=== PATIENT | female | born 1985 ===

== ENCOUNTER 2023-01-22 17:11 | Emergency (ER) | payer SELFPAY ==
[2023-01-22 17:17] VITALS: BP 134/83; PULSE 74; RESP 20; TEMP 37.1; O2SAT 96
--- NOTE | 2023-01-22 17:27 | ED.GENADULT ---
HPI - General Adult General Chief complaint: Allergic Reaction Stated complaint: allergic reaction Time Seen by Provider: 01/22/23 17:13 History of Present Illness HPI narrative: Sirisha presented to the ED after a wasp sting. She was afraid because she is allergic to bees. When she gets stung there is a lot of itching, pain and swelling. There is no lip or tongue swelling and no breathing difficulties. Other than a little pain she has no issues. Related Data Allergies Allergy/AdvReac Type Severity Reaction Status Date / Time codeine Allergy Intermediate Unknown Verified 01/22/23 17:27 tramadol Allergy Intermediate Unknown Verified 01/22/23 17:27 sulfamethoxazole Allergy Unknown Verified 01/22/23 17:27 [From Bactrim] trimethoprim [From Bactrim] Allergy Unknown Verified 01/22/23 17:27 Review of Systems Review of Systems: All systems reviewed & are unremarkable except as noted in HPI and below PMFSH Social History Social History Smoking status: Current every day smoker Exam Const: General: healthy appearing and no acute distress Nutritional Appearance: well nourished Orientation/consciousness: patient oriented x3 HENMT: Head: normal to inspection Ears: external ears normal Face/Nose/Sinus: Normal external nose present Face and sinus: normal facial exam Eyes: Conjunctivae: conjunctivae normal Pupils: Equal, round and reactive pupils present Neck: Neck: normal visual inspection Chest: Chest palpation & inspection: normal inspection of the chest Resp: Effort & Inspection: normal respiratory effort Auscultation: clear to auscultation bilaterally Cardio: Rate: regular rate Back/Spine/Pelvis: Back: no CVA tenderness Skin: General skin exam: normal color Other: small 2mm x 2mm erythematous papule on the pack of the right knee Neuro: General: patient oriented x3 and moves all extremities Cranial nerves: Yes Nystagmus not present Extrem: General: normal to inspection Psych: Mental Status: mental status grossly normal Affect: normal affect Course Course Emergency Course: Offered benadryl and pepsid when patient stated that she does not like pills. I discussed that she does not meet any criteria for epi. She then said she did not want any care and left the ED. As there were no systemic symptoms treatment would symptomatic. Vital Signs Vital signs: Vital Signs Temperature 98.7 F 01/22/23 17:17 Pulse Rate 74 01/22/23 17:17 Respiratory Rate 01/22/23 17:17 Blood Pressure 134/83 01/22/23 17:17 Pulse Oximetry 96 01/22/23 17:17 Oxygen Delivery Room Air 01/22/23 17:17 Temperature 98.7 F 01/22/23 17:17 Pulse Rate 74 01/22/23 17:17 Respiratory Rate 01/22/23 17:17 Blood Pressure 134/83 01/22/23 17:17 Pulse Oximetry 96 01/22/23 17:17 Oxygen Delivery Room Air 01/22/23 17:17 Medical Decision Making Vital Signs Vital Signs: Vital Signs Temperature 98.7 F 01/22/23 17:17 Pulse Rate 74 01/22/23 17:17 Respiratory Rate 01/22/23 17:17 Blood Pressure 134/83 01/22/23 17:17 Pulse Oximetry 96 01/22/23 17:17 Oxygen Delivery Room Air 01/22/23 17:17 Temperature 98.7 F 01/22/23 17:17 Pulse Rate 74 01/22/23 17:17 Respiratory Rate 01/22/23 17:17 Blood Pressure 134/83 01/22/23 17:17 Pulse Oximetry 96 01/22/23 17:17 Oxygen Delivery Room Air 01/22/23 17:17 Discharge Plan Discharge Clinical Impression: Insect bite Patient Disposition: Home, Self-Care Condition: Stable Instructions: Insect Bite or Sting (ED) Follow-up/Referrals: UNKNOWN,DOCTOR [Primary Care Provider] -
== END 2023-01-22 17:30 | disposition home or self-care (01) ==
LOC: CHSED 17:42
PROVIDERS: Emergency Provider Family Medicine
DX: T63.461A Toxic effect of venom of wasps, accidental (unintentional), initial encounter (principal); F17.200 Nicotine dependence, unspecified, uncomplicated
CPT/HCPCS: 99281

== ENCOUNTER 2024-10-08 19:22 | Emergency (ER) | payer OTHER, SELFPAY ==
[2024-10-08 19:22] VITALS: BP 119/82; PULSE 76; RESP 20; TEMP 36.4; O2SAT 95
--- NOTE | 2024-10-08 19:25 | ED_ITS ---
HPI - Dizziness General Chief Complaint: Dizziness Stated Complaint: Dizzy Time Seen by Provider: 10/08/24 19:25 Source: patient Mode of arrival: ambulatory Limitations: no limitations History of Present Illness HPI Narrative: 39-year-old female, smoker with a history of GERD, diabetes mellitus not on any medication presented to the ED with a 1 hour history of -- dizziness. She complains of lightheadedness which is made worse on standing up from sitting position. Patient had -- nausea with 2 episodes of vomiting. -- Headache prior to the start of her dizziness. No chest pain or shortness of breath. No abdominal pain no fever or chills the patient denied any drug or alcohol use patient denied any ear problems. blood sugar is 96 MD elicited complaint: dizziness and lightheadedness Onset (ago): hour(s) ( 1 hour) Timing: sudden onset Severity: severe Description: lightheadedness Context: change in body position History of similar symptoms: No Exacerbating factors: change in body position Associated symptoms: nausea and vomiting Related Data Home Medications ?Medication ?Instructions ?Recorded ?Confirmed ?Last Taken ?Type omeprazole .ROUTE 10/08/24 Unknown History Allergies Allergy/AdvReac Type Severity Reaction Status Date / Time codeine Allergy Intermediate Unknown Verified 10/08/24 19:54 tramadol Allergy Intermediate Unknown Verified 10/08/24 19:54 sulfamethoxazole (From Allergy Unknown Verified 10/08/24 19:54 Bactrim) trimethoprim (From Bactrim) Allergy Unknown Verified 10/08/24 19:54 Review of Systems Review of Systems: All systems reviewed & are unremarkable except as noted in HPI and below Constitutional: Constitutional: Reports as per HPI and Reports no additional constitutional complaints Eyes: Eyes: Reports as per HPI and Reports no additional eye complaints ENT: Reports system reviewed and no additional complaints, except as documented and Reports as per HPI Cardiovascular: Cardiovascular: Reports as per HPI and Reports no additional cardiovascular complaints Respiratory: Respiratory: Reports as per HPI and Reports no additional respiratory complaints Gastrointestinal: Gastrointestinal: Reports as per HPI and Reports no additional gastrointestinal complaints Genitourinary: Genitourinary: Reports no additional female genitourinary complaints and Reports as per HPI Musculoskeletal: Musculoskeletal: Reports no additional musculoskeletal complaints and Reports as per HPI Integumentary/Breasts: Skin/Breast: Reports system reviewed and no additional complaints, except as docu and Reports as per HPI Neurologic: Reports system reviewed and no additional complaints, except as documented, Reports as per HPI and Reports dizziness Psychiatric: Psychiatric: Reports no additional psychiatric complaints and Reports as per HPI Endocrine: Endocrine: Reports no additional endocrine complaints and Reports as per HPI Hematologic/Lymphatic: Hematologic/Lymphatic: Reports no additional hematologic/lymphatic complaints and Reports as per HPI Allergic/Immunologic: Allergic/Immunologic: Reports no additional allergic/immunologic complaints and Reports as per HPI [facility] Past Medical History Medical History (Updated 10/08/24 @ 20:21 by Efren Rivas MD) GERD (gastroesophageal reflux disease) Social History Social History (Updated 10/08/24 @ 19:38 by Efren Rivas MD) Social History: vapes Smoking status: Current every day smoker Exam Narrative: afebrile. Vitals are stable. O2 sats of 96% on room air. Const: General: ill appearing Nutritional Appearance: obese Orientation/consciousness: patient oriented x3 HENMT: Head: normal to inspection Ears: TM's normal bilaterally Face/Nose/Sinus: Normal external nose present Face and sinus: normal facial exam Mouth: Yes Normal oral and palatal mucosa present Throat: posterior oropharynx normal Eyes: Conjunctivae: conjunctivae normal Pupils: Equal, round and reactive pupils present EOM: EOMs intact bilaterally Direct Ophthalmoscopy: no photophobia Neck: Neck: normal visual inspection, no lymphadenopathy and no meningeal signs Chest: Chest palpation & inspection: normal inspection of the chest Resp: Effort & Inspection: normal respiratory effort Auscultation: diminished lung sounds Cardio: Rate: regular rate Rhythm: regular rhythm GI: GI Palp: Yes Soft to palpation Auscultation: normal bowel sounds Other: No tenderness/rigidity /rebound : General: Yes no CVA tenderness Back/Spine/Pelvis: Back: no CVA tenderness Skin: General skin exam: normal color Rashes: no rashes Neuro: General: patient oriented x3, moves all extremities, no meningeal signs, no focal motor deficits and CN's II-XI intact bilaterally Speech: normal speech Other: no focal deficit noted. Extrem: General: normal to inspection Other: Bilateral leg varicose veins Psych: Mental Status: mental status grossly normal Affect: normal affect Attitude: cooperative Course Course Emergency Course: dizziness-- ordered CT of the head EKG and blood work. Patient does not want any blood work done. She walked out of the ED vomiting Vital Signs Vital signs: Vital Signs Temperature 36.4 C 10/08/24 19:22 Pulse Rate 76 10/08/24 19:22 Respiratory Rate 20 10/08/24 19:22 Blood Pressure 119/82 10/08/24 19:22 Pulse Oximetry 95 10/08/24 19:22 Oxygen Delivery Room Air 10/08/24 19:22 Temperature 36.4 C 10/08/24 19:22 Pulse Rate 74 10/08/24 19:46 Respiratory Rate 16 10/08/24 19:46 Blood Pressure 115/74 10/08/24 19:46 Pulse Oximetry 98 10/08/24 19:46 Oxygen Delivery Room Air 10/08/24 19:22 MDM - Dizziness MDM Narrative Medical decision making narrative: dizziness-- patient did not want blood work and CT scans done. Explained to the patient about the risks of not getting medical treatment. While he was still talking the patient got up left. vomiting Differential Diagnosis Differential diagnosis: Likely orthostatic hypotension, cerebrovascular accident and acute vestibular neuronitis Lab Data Labs: Lab Results 10/08/24 Range/Units 19:39 POC Capillary Glucose 96 (65-105) mg/dl Discharge Plan Discharge Clinical Impression: Dizziness Vomiting Qualifiers: Vomiting type: unspecified Nausea presence: with nausea Qualified Code(s): R11.2 - Nausea with vomiting, unspecified Patient Disposition: Left Against Medical Advice Condition: Unstable Instructions: Antibiotic Form Patient Language: [place] Prescriptions: No Action omeprazole [Prilosec] .ROUTE Follow-up/Referrals: UNKNOWN,DOCTOR [Non-Staff] - Time of Disposition:
--- NOTE | 2024-10-08 19:28 | PC.NURSE ---
DR FELIX AT THE BEDSIDE
[2024-10-08 19:30] VITALS: BP 113/90; PULSE 78; RESP 16; O2SAT 97
--- NOTE | 2024-10-08 19:30 | PC.NURSE ---
DR FELIX HAS PATIENT STAND UP. PATIENT VOMITED ON THE FLOOR
[2024-10-08 19:32] VITALS: BP 103/68; PULSE 72; RESP 18; O2SAT 97
--- NOTE | 2024-10-08 19:35 | PC.NURSE ---
PATIENT TOLD DR FELIX SHE ONLY WANTS HER BLOOD SUGAR TESTED. DOES NOT WANT TO WAIT FOR ADDITIONAL TESTS
[2024-10-08 19:40] LABS: Glucose Point of Care 96 mg/dl (65-105)
--- NOTE | 2024-10-08 19:44 | PC.NURSE ---
PATIENT IS WANTING TO LEAVE. EXPLAINED TO PATIENT THAT THERE IS A CONCERN WITH HER HAVING A HEADACHE AND NOW IS VOMITING. DR FELIX WANTING BLOOD TEST AND CT OF HER HEAD. PATIENT STARTED TO CRY. SAYS SHE STILL WANTS TO LEAVE. HER FRIEND IS AT THE BEDSIDE. SHE IS TRYING TO ENCOURAGE PATIENT TO STAY.
[2024-10-08 19:46] VITALS: BP 115/74; PULSE 74; RESP 16; O2SAT 98
--- NOTE | 2024-10-08 19:51 | PC.NURSE ---
PATIENT STATES I DONT FEEL GOOD. I CANT WALK. I WANT TO GO HOME. I CANT BE HERE FOR MULTIPLE HOURS . AGAIN, EXPLAINED PATIENT THE RISKS AND BENEFITS OF TESTING. CONTINUES TO WANT TO GO HOME. FRIEND AT HER SIDE.
--- NOTE | 2024-10-08 19:53 | PC.NURSE ---
CURRENTLY REFUSING ALL TREATMENT
== END 2024-10-08 20:00 | disposition left against medical advice (07) ==
PROVIDERS: Emergency Provider Internal Medicine Critical Care Medicine; PCP Family Medicine
DX: R42 Dizziness and giddiness (principal); R11.2 Nausea with vomiting, unspecified; R51.9 Headache, unspecified; K21.9 Gastro-esophageal reflux disease without esophagitis; F17.290 Nicotine dependence, other tobacco product, uncomplicated
CPT/HCPCS: 82948; 99283